=== PATIENT | female | born 1945 | race Hispanic/Latino ===

== ENCOUNTER 2017-02-13 17:53 | Emergency (ER) | payer MEDICARE ==
[2017-02-13 18:12] VITALS: BP 152/82; PULSE 80; RESP 16; TEMP 98.3; O2SAT 98
[2017-02-13] MEDS ORDERED: Povidone Iodine Topical 10% Sol ONE (18:15)
--- NOTE | 2017-02-13 18:48 | ED PDOC ---
Upper Extremity Pain/Injury Time Seen by Provider: 02/13/17 18:13 Chief Complaint (Nursing): Upper Extremity Problem/Injury Chief Complaint (Provider): Upper Extremity Problem/Injury History Per: Patient History/Exam Limitations: no limitations Onset/Duration Of Symptoms: Days (x5) Additional Complaint(s): Lizzette Hdz, 71 year old female presents to the ED on 02/13/17 with pain and swelling localized to her left 5th digit occurring for 5 days prior to arrival. Patient states that before the onset of the pain and swelling, she pulled her cuticle from this area. She denies fever. Past Medical History Reviewed: Historical Data, Nursing Documentation, Vital Signs Vital Signs: Last Vital Signs Temp 98.3 F 02/13/17 18:09 Pulse 80 02/13/17 18:09 Resp 16 02/13/17 18:09 BP 152/82 H 02/13/17 18:09 Pulse Ox 98 02/13/17 18:09 - Medical History PMH: Diabetes, HTN - Family History Family History: States: Unknown Family Hx - Immunization History Hx Tetanus Toxoid Vaccination: No Hx Influenza Vaccination: No Hx Pneumococcal Vaccination: No - Home Medications Home Medications: Ambulatory Orders Medication Instructions Recorded Docusate [Colace] 100 mg PO BID PRN #14 cap 12/17/15 Hard Fat/Phenylephrine [place] 1 sup RC DAILY #15 sup 12/17/15 [Anusol Suppository] Clindamycin [Cleocin] 300 mg PO QID #40 cap 04/25/16 Sulfamethoxazole/Trimethoprim 2 tab PO BID #28 tab 02/13/17 [Bactrim DS 800 mg-160 mg] - Allergies Allergies/Adverse Reactions: Allergies Allergy/AdvReac Type Severity Reaction Status Date / Time Penicillins Allergy RASH Verified 12/17/15 11:16 Review of Systems Constitutional: Negative for: Fever Musculoskeletal: Positive for: Hand Pain (pain and swelling localized to left 5th digit ) Physical Exam - Reviewed Nursing Documentation Reviewed: Yes Vital Signs Reviewed: Yes - Physical Exam Appears: Positive for: Non-toxic, No Acute Distress Head Exam: Positive for: ATRAUMATIC, NORMOCEPHALIC Skin: Positive for: Normal Color, Warm, Dry Extremity: Positive for: Other (Fluctuance noted to left 5th digit on medial nail margin ). Negative for: Tenderness (no pulp tenderness on left 5th digit on medial nail margin ), Swelling (no pulp swelling on left 5th digit on medial nail margin ) Neurologic/Psych: Positive for: Alert, Oriented (x3) - ECG O2 Sat by Pulse Oximetry: 98 (RA) Pulse Ox Interpretation: Normal Medical Decision Making Medical Decision Makin:13 Initial Impression: Upper Extremity Injury/Problem Initial Plan: * I&D Scribe Attestation: Documented by Laurita Schroeder, acting as a scribe for James Merritt PA-C. Provider Scribe Attestation: All medical record entries made by the Scribe were at my direction and personally dictated by me. I have reviewed the chart and agree that the record accurately reflects my personal performance of the history, physical exam, medical decision making, and the department course for this patient. I have also personally directed, reviewed, and agree with the discharge instructions and disposition. Procedures - Time-Out Type of Procedure: incision and drainage Site of Procedure: L 2nd digit Correct Patient: Yes Correct Procedure: Yes Correct Site Marked: Yes PA/Tech: René - Incision and Drainage Blade Size: 11 I & D Procedure: betadine prep, sterile drapes applied Progress: Purulent material expressed out of finger. Disposition - Clinical Impression Clinical Impression: [facility] - Patient ED Disposition Is Patient to be Admitted: No - Disposition Disposition: Routine/Home Disposition Time: 18:50 Condition: STABLE Additional Instructions: Follow up with your PMD in 2 days for wound check. Return to ED immediately if fever develops or symptoms worsen. Prescriptions: Sulfamethoxazole/Trimethoprim [Bactrim DS 800 mg-160 mg] 2 tab PO BID #28 tab Instructions: [facility] (ED) Print Language: BAHRAINI
== END 2017-02-13 19:08 | disposition home or self-care (01) ==
LOC: H.ER 17:53
DX: L03.012 Cellulitis of left finger (principal); E11.9 Type 2 diabetes mellitus without complications; I10 Essential (primary) hypertension; Z88.0 Allergy status to penicillin